=== PATIENT | female | born 1945 | race Caucasian/White ===

== ENCOUNTER 2020-08-23 16:29 | Emergency (ER) | payer MEDICARE, OTHER ==
[2020-08-23] MEDS ORDERED: cloNIDine 0.1 MG Tab PO ONE (16:51)
[2020-08-23 16:53] LABS: CHLORIDE,CL 103 mmol/L (98-107); SODIUM,NA 143 mmol/L (136-145)
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
[2020-08-23 19:09] VITALS: BP 182/90; PULSE 102
== END 2020-08-23 18:25 | disposition home or self-care (01) ==
LOC: LL.ED 16:29
DX: I10 Essential (primary) hypertension (principal); J44.9 Chronic obstructive pulmonary disease, unspecified; Z79.899 Other long term (current) drug therapy; Z79.82 Long term (current) use of aspirin; D62 Acute posthemorrhagic anemia
CPT/HCPCS: 36415; 71045; 80053; 84484; 85018; 85025; 93005; 99284; 99284-25; A9270-GY

== ENCOUNTER 2022-02-06 07:40 | Emergency (ER) | payer MEDICARE, OTHER ==
[2022-02-06] MEDS ORDERED: Sodium Chloride 0.9% 10 ML Syringe FLUSH PRN (07:57)
[2022-02-06 08:23] LABS: CHLORIDE,CL 97 mmol/L (98-107); SODIUM,NA 133 mmol/L (136-145)
[2022-02-06 08:26] LABS: ANION GAP 6.3 meq/L (7-15); ESTIMATED GFR 67 mL/min (>=60)
[2022-02-06] MEDS ORDERED: hydrALAZINE 20 MG/ML SDV IVPUSH ONE (08:36)
[2022-02-06] MEDS ORDERED: cloNIDine 0.1 MG Tab PO ONE (10:57)
[2022-02-06] MEDS ORDERED: amLODIPine 5 MG Tab PO ONE (11:01)
[2022-02-06] MEDS ORDERED: Metoprolol Succinate 50 MG Tab.ER PO ONE (11:01)
[2022-02-06] MEDS ORDERED: diphenhydrAMINE 25 MG Cap PO ONE (11:18)
[2022-02-06 18:16] VITALS: BP 138/72; PULSE 75
== END 2022-02-06 13:40 | disposition home or self-care (01) ==
LOC: LL.ED 07:40
DX: F03.91 Unspecified dementia, unspecified severity, with behavioral disturbance (principal); I11.0 Hypertensive heart disease with heart failure; I50.9 Heart failure, unspecified; J44.9 Chronic obstructive pulmonary disease, unspecified; K21.9 Gastro-esophageal reflux disease without esophagitis; Z79.82 Long term (current) use of aspirin; Z79.899 Other long term (current) drug therapy; Z87.891 Personal history of nicotine dependence
CPT/HCPCS: 70450; 71045; 80053; 81001; 82947; 84484; 85025; 85610; 85730; 93005; 93010; 96374; 99284; 99285-25; A9270-GY; J0360; J3490

== ENCOUNTER 2022-04-06 16:22 | Emergency (ER) | payer MEDICARE, OTHER ==
[2022-04-06] MEDS ORDERED: Sodium Chloride 0.9% 10 ML Syringe FLUSH PRN (16:23)
[2022-04-06 16:35] VITALS: PULSE 90
[2022-04-06 17:12] LABS: CHLORIDE,CL 89 mmol/L (98-107); SODIUM,NA 126 mmol/L (136-145)
[2022-04-06 17:20] LABS: ANION GAP 11.7 meq/L (7-15); ESTIMATED GFR 73 mL/min (>=60)
[2022-04-06 18:02] VITALS: BP 151/82
== END 2022-04-06 22:50 | disposition home or self-care (01) ==
LOC: LL.ED 16:22
DX: U07.1 COVID-19 (principal); I11.0 Hypertensive heart disease with heart failure; I50.9 Heart failure, unspecified; J44.9 Chronic obstructive pulmonary disease, unspecified; Z79.899 Other long term (current) drug therapy; Z79.82 Long term (current) use of aspirin
CPT/HCPCS: 36415; 80053; 83605; 83615; 83735; 84100; 85025; 86140; 87040; 99284

== ENCOUNTER 2022-06-19 16:17 | Inpatient (IN) | payer MEDICARE, OTHER ==
[2022-06-19] MEDS ORDERED: Acetaminophen 325 MG Tab PO ONE (16:22)
[2022-06-19 17:12] LABS: CHLORIDE,CL 89 mmol/L (98-107); SODIUM,NA 132 mmol/L (136-145)
[2022-06-19 17:13] LABS: ESTIMATED GFR 46 mL/min (>=60)
[2022-06-19 17:17] LABS: PCO2 ARTERIAL,POC 43 mmHg (35-48)
[2022-06-19 17:23] LABS: CORONAVIRUS COVID-19 NAA NEGATIVE (NEGATIVE); RESPIRATORY SYNCYTIAL VIR NAA NEGATIVE (NEGATIVE)
[2022-06-19] MEDS ORDERED: methylPREDNISolone Sodium Succinate 125 MG/2 ML SDV IVPUSH ONE ×2 (17:40→20:43)
[2022-06-19] MEDS ORDERED: Azithromycin 500 MG in Sodium Chloride 0.9% 250 ML IV ONE (17:40)
[2022-06-19] MEDS ORDERED: cefTRIAXone 1 GM in Sodium Chloride 0.9% 100 ML IV SCH (17:45)
[2022-06-19] MEDS ORDERED: EPINEPHRINE 0.3 MG/0.3 ML SUBCUT PRN (19:55)
[2022-06-19] MEDS ORDERED: Acetaminophen 500 MG Tab PO PRN (19:55)
[2022-06-19] MEDS ORDERED: AUTO INJCT SUBCUT PRN (19:55)
[2022-06-19] MEDS: cefTRIAXone 1 GM in Sodium Chloride 0.9% 100 ML IV SCH (21:16)
[2022-06-19] MEDS: Donepezil 5 MG Tab PO SCH (21:27)
[2022-06-19] MEDS: Azithromycin 500 MG in Sodium Chloride 0.9% 250 ML IV SCH (22:37)
[2022-06-20] MEDS: Albuterol/Ipratropium 3.0-0.5 MG/3 ML Neb Soln NEB SCH ×4 (00:04→23:39)
[2022-06-20 07:33] LABS: ANION GAP 10.9 meq/L (7-15)
[2022-06-20] MEDS ORDERED: methylPREDNISolone Sodium Succinate 40 MG/1 ML SDV IVPUSH ONE (08:00)
[2022-06-20] MEDS ORDERED: Memantine HCl 28 MG CAP.ER PO SCH (08:00)
[2022-06-20] MEDS ORDERED: Enoxaparin 40 MG/0.4 ML Syringe SUBCUT SCH (08:00)
[2022-06-20] MEDS: Polyethylene Glycol 3350 Powder 17 GM Packet PO SCH (08:02)
[2022-06-20] MEDS: Lactulose Soln 10 GM/15 ML 30 ML UD Cup PO SCH ×2 (08:04→17:07)
[2022-06-20] MEDS: Aspirin 81 MG Tab.EC PO SCH (08:05)
[2022-06-20] MEDS: Rosuvastatin 10 MG Tab PO SCH (08:07)
[2022-06-20] MEDS: Metoprolol Succinate 50 MG Tab.ER PO SCH (08:07)
[2022-06-20] MEDS: Potassium Chloride 10 MEQ Tab.ER PO SCH (08:08)
[2022-06-20] MEDS: Montelukast 10 MG Tab PO SCH (08:08)
[2022-06-20] MEDS: Lisinopril 20 MG Tab PO SCH ×2 (08:08→17:08)
[2022-06-20] MEDS: Furosemide 40 MG Tab PO SCH (08:09)
[2022-06-20] MEDS: amLODIPine 5 MG Tab PO SCH (08:09)
[2022-06-20] MEDS: cloNIDine 0.1 MG Tab PO SCH (08:09)
[2022-06-20] MEDS: Memantine 10 MG Tab PO SCH ×2 (11:00→17:08)
[2022-06-20] MEDS ORDERED: Azithromycin 500 MG in Sodium Chloride 0.9% 250 ML IV SCH (16:00)
[2022-06-20] MEDS ORDERED: LORazepam 0.5 MG Tab PO PRN (19:36)
[2022-06-20] MEDS: Donepezil 5 MG Tab PO SCH (19:54)
[2022-06-20] MEDS: cefTRIAXone 1 GM in Sodium Chloride 0.9% 100 ML IV SCH (21:51)
[2022-06-20] MEDS: Azithromycin 500 MG in Sodium Chloride 0.9% 250 ML IV SCH (22:29)
[2022-06-21] MEDS: Rosuvastatin 10 MG Tab PO SCH (07:46)
[2022-06-21] MEDS: Albuterol/Ipratropium 3.0-0.5 MG/3 ML Neb Soln NEB SCH ×2 (07:46→15:57)
[2022-06-21] MEDS: amLODIPine 5 MG Tab PO SCH (07:46)
[2022-06-21] MEDS: Montelukast 10 MG Tab PO SCH (07:46)
[2022-06-21] MEDS: Metoprolol Succinate 50 MG Tab.ER PO SCH (07:47)
[2022-06-21] MEDS: Memantine 10 MG Tab PO SCH ×2 (07:48→17:13)
[2022-06-21] MEDS: Aspirin 81 MG Tab.EC PO SCH (07:49)
[2022-06-21] MEDS: Furosemide 40 MG Tab PO SCH (07:49)
[2022-06-21] MEDS: Potassium Chloride 10 MEQ Tab.ER PO SCH (07:49)
[2022-06-21] MEDS: cloNIDine 0.1 MG Tab PO SCH (07:49)
[2022-06-21] MEDS: Lisinopril 20 MG Tab PO SCH (07:49)
[2022-06-21] MEDS: Lactulose Soln 10 GM/15 ML 30 ML UD Cup PO SCH ×2 (07:50→17:13)
[2022-06-21] MEDS: Polyethylene Glycol 3350 Powder 17 GM Packet PO SCH (07:50)
[2022-06-21] MEDS ORDERED: Iopamidol 612 MG/ML 100 ML Bottle IVPUSH ONE (12:41)
[2022-06-21] MEDS ORDERED: Sodium Chloride 0.9% 500 ML IV SCH ×2 (12:45→15:45)
[2022-06-21] MEDS ORDERED: Iopamidol 612 MG/ML 100 ML Bottle ONE (12:54)
[2022-06-21] MEDS ORDERED: Sodium Chloride 0.9% 1,000 ML IV SCH (18:15)
[2022-06-21] MEDS: Budesonide 0.5 MG/2 ML Neb Susp NEB SCH (18:56)
[2022-06-21] MEDS: methylPREDNISolone Sodium Succinate 40 MG/1 ML SDV IVPUSH SCH (18:56)
[2022-06-21] MEDS: Donepezil 5 MG Tab PO SCH (21:15)
[2022-06-21] MEDS: cefTRIAXone 1 GM in Sodium Chloride 0.9% 100 ML IV SCH (21:16)
[2022-06-21] MEDS: Azithromycin 500 MG in Sodium Chloride 0.9% 250 ML IV SCH (21:53)
[2022-06-22] MEDS: Albuterol/Ipratropium 3.0-0.5 MG/3 ML Neb Soln NEB SCH ×5 (00:05→23:05)
[2022-06-22] MEDS: methylPREDNISolone Sodium Succinate 40 MG/1 ML SDV IVPUSH SCH ×2 (05:46→17:36)
[2022-06-22 08:03] LABS: ANION GAP 7.6 meq/L (7-15)
[2022-06-22] MEDS: Memantine 10 MG Tab PO SCH ×2 (08:03→17:36)
[2022-06-22] MEDS: Furosemide 40 MG Tab PO SCH (08:03)
[2022-06-22] MEDS: Rosuvastatin 10 MG Tab PO SCH (08:03)
[2022-06-22] MEDS: Montelukast 10 MG Tab PO SCH (08:03)
[2022-06-22] MEDS: Potassium Chloride 10 MEQ Tab.ER PO SCH (08:03)
[2022-06-22] MEDS: Budesonide 0.5 MG/2 ML Neb Susp NEB SCH ×2 (08:03→17:37)
[2022-06-22] MEDS: Polyethylene Glycol 3350 Powder 17 GM Packet PO SCH (08:03)
[2022-06-22] MEDS: Aspirin 81 MG Tab.EC PO SCH (08:03)
[2022-06-22] MEDS: cefTRIAXone 1 GM in Sodium Chloride 0.9% 100 ML IV SCH (20:08)
[2022-06-22] MEDS: Donepezil 5 MG Tab PO SCH (20:10)
[2022-06-22] MEDS: Azithromycin 500 MG in Sodium Chloride 0.9% 250 ML IV SCH (21:12)
[2022-06-23] MEDS: methylPREDNISolone Sodium Succinate 40 MG/1 ML SDV IVPUSH SCH (05:51)
[2022-06-23] MEDS: Montelukast 10 MG Tab PO SCH (07:38)
[2022-06-23] MEDS: Rosuvastatin 10 MG Tab PO SCH (07:38)
[2022-06-23] MEDS: Aspirin 81 MG Tab.EC PO SCH (07:38)
[2022-06-23] MEDS: Memantine 10 MG Tab PO SCH (07:38)
[2022-06-23] MEDS: Furosemide 40 MG Tab PO SCH (07:39)
[2022-06-23] MEDS: Polyethylene Glycol 3350 Powder 17 GM Packet PO SCH (07:39)
[2022-06-23] MEDS: Potassium Chloride 10 MEQ Tab.ER PO SCH (07:39)
[2022-06-23] MEDS: Albuterol/Ipratropium 3.0-0.5 MG/3 ML Neb Soln NEB SCH (07:39)
[2022-06-23] MEDS: Budesonide 0.5 MG/2 ML Neb Susp NEB SCH (07:39)
[2022-06-23 08:13] VITALS: PULSE 108
[2022-06-23 08:16] VITALS: BP 138/88
== END 2022-06-23 15:02 | disposition swing bed (61) | DRG 189 ==
LOC: LL.ED 16:17 → LL.MS 19:00
PROVIDERS: ADMIT Physician Assistant; ATTEND Physician Assistant
DX: J44.1 Chronic obstructive pulmonary disease with (acute) exacerbation (principal); J96.01 Acute respiratory failure with hypoxia; J18.9 Pneumonia, unspecified organism; I50.22 Chronic systolic (congestive) heart failure; J44.0 Chronic obstructive pulmonary disease with (acute) lower respiratory infection; I95.9 Hypotension, unspecified; R62.7 Adult failure to thrive; R79.89 Other specified abnormal findings of blood chemistry; Z91.14 Patient's other noncompliance with medication regimen; J44.9 Chronic obstructive pulmonary disease, unspecified; Z87.891 Personal history of nicotine dependence; F41.8 Other specified anxiety disorders; Z99.81 Dependence on supplemental oxygen; R79.1 Abnormal coagulation profile; I50.9 Heart failure, unspecified; K21.9 Gastro-esophageal reflux disease without esophagitis; M19.90 Unspecified osteoarthritis, unspecified site; F03.90 Unspecified dementia, unspecified severity, without behavioral disturbance, psychotic disturbance, mood disturbance, and anxiety; F32.A Depression, unspecified; I73.9 Peripheral vascular disease, unspecified; I11.0 Hypertensive heart disease with heart failure; Z86.16 Personal history of COVID-19; Z79.82 Long term (current) use of aspirin; Z79.899 Other long term (current) drug therapy; Z20.822 Contact with and (suspected) exposure to COVID-19
CPT/HCPCS: 0241U; 36415; 36600; 71045; 71046; 71260; 80048; 80053; 81001; 82803; 83605; 83880; 85025; 85379; 86140; 87070; 87205; 94640; 97162-GP; 97165-GO; 97530-GP; 97535-GO; 99284; A9270-GY; J0456; J0696; J1650; J2920; J2930; J7030; J7040; J7050; J7620-GY; Q9967

== ENCOUNTER 2022-06-23 15:04 | Inpatient (IN) | payer MEDICARE, OTHER ==
[~2022-06-23 15:04] MED LIST: Sodium Chloride 0.9% 1,000 ML IV SCH
[2022-06-23] MEDS: Albuterol/Ipratropium 3.0-0.5 MG/3 ML Neb Soln NEB SCH (17:49)
[2022-06-23] MEDS: Azithromycin 250 MG Tab PO SCH (17:50)
[2022-06-23] MEDS: Budesonide 0.5 MG/2 ML Neb Susp NEB SCH (17:50)
[2022-06-23] MEDS: predniSONE 20 MG Tab PO SCH (17:50)
[2022-06-23] MEDS: Memantine 10 MG Tab PO SCH (17:50)
[2022-06-23] MEDS ORDERED: methylPREDNISolone Sodium Succinate 40 MG/1 ML SDV IVPUSH SCH (18:30)
[2022-06-23] MEDS: Fluconazole 100 MG Tab PO SCH (19:17)
[2022-06-23] MEDS: Donepezil 5 MG Tab PO SCH (19:17)
[2022-06-23] MEDS ORDERED: cefTRIAXone 1 GM in Sodium Chloride 0.9% 100 ML IV SCH (21:00)
[2022-06-23] MEDS ORDERED: Azithromycin 500 MG in Sodium Chloride 0.9% 250 ML IV SCH (22:00)
[2022-06-24] MEDS: Albuterol/Ipratropium 3.0-0.5 MG/3 ML Neb Soln NEB SCH ×4 (00:34→23:49)
[2022-06-24] MEDS: Rosuvastatin 10 MG Tab PO SCH (07:40)
[2022-06-24] MEDS: Potassium Chloride 10 MEQ Tab.ER PO SCH (07:41)
[2022-06-24] MEDS: Furosemide 40 MG Tab PO SCH (07:41)
[2022-06-24] MEDS: Aspirin 81 MG Tab.EC PO SCH (07:41)
[2022-06-24] MEDS: Memantine 10 MG Tab PO SCH ×2 (07:42→17:01)
[2022-06-24] MEDS: Polyethylene Glycol 3350 Powder 17 GM Packet PO SCH (07:42)
[2022-06-24] MEDS: predniSONE 20 MG Tab PO SCH ×2 (07:42→17:01)
[2022-06-24] MEDS: Montelukast 10 MG Tab PO SCH (07:43)
[2022-06-24] MEDS: Azithromycin 250 MG Tab PO SCH (07:43)
[2022-06-24] MEDS: Budesonide 0.5 MG/2 ML Neb Susp NEB SCH ×2 (07:47→17:01)
[2022-06-24] MEDS: Donepezil 5 MG Tab PO SCH (19:48)
[2022-06-25] MEDS: Memantine 10 MG Tab PO SCH ×2 (08:09→17:33)
[2022-06-25] MEDS: Montelukast 10 MG Tab PO SCH (08:09)
[2022-06-25] MEDS: Azithromycin 250 MG Tab PO SCH (08:10)
[2022-06-25] MEDS: Rosuvastatin 10 MG Tab PO SCH (08:10)
[2022-06-25] MEDS: Aspirin 81 MG Tab.EC PO SCH (08:10)
[2022-06-25] MEDS: Potassium Chloride 10 MEQ Tab.ER PO SCH (08:10)
[2022-06-25] MEDS: Furosemide 40 MG Tab PO SCH (08:10)
[2022-06-25] MEDS: predniSONE 20 MG Tab PO SCH ×2 (08:10→17:33)
[2022-06-25] MEDS: Polyethylene Glycol 3350 Powder 17 GM Packet PO SCH (08:10)
[2022-06-25] MEDS: Albuterol/Ipratropium 3.0-0.5 MG/3 ML Neb Soln NEB SCH ×2 (08:11→16:28)
[2022-06-25] MEDS: Budesonide 0.5 MG/2 ML Neb Susp NEB SCH ×2 (08:11→17:33)
[2022-06-25] MEDS: Donepezil 5 MG Tab PO SCH (20:20)
[2022-06-26] MEDS: Albuterol/Ipratropium 3.0-0.5 MG/3 ML Neb Soln NEB SCH ×4 (01:43→23:07)
[2022-06-26] MEDS: Memantine 10 MG Tab PO SCH ×2 (08:25→17:39)
[2022-06-26] MEDS: Rosuvastatin 10 MG Tab PO SCH (08:25)
[2022-06-26] MEDS: Montelukast 10 MG Tab PO SCH (08:25)
[2022-06-26] MEDS: Budesonide 0.5 MG/2 ML Neb Susp NEB SCH ×2 (08:25→17:39)
[2022-06-26] MEDS: Aspirin 81 MG Tab.EC PO SCH (08:26)
[2022-06-26] MEDS: Potassium Chloride 10 MEQ Tab.ER PO SCH (08:26)
[2022-06-26] MEDS: predniSONE 20 MG Tab PO SCH ×2 (08:26→17:39)
[2022-06-26] MEDS: Furosemide 40 MG Tab PO SCH (08:26)
[2022-06-26] MEDS: Polyethylene Glycol 3350 Powder 17 GM Packet PO SCH (08:26)
[2022-06-26] MEDS: Azithromycin 250 MG Tab PO SCH (08:26)
[2022-06-26] MEDS ORDERED: Polyethylene Glycol 3350 Powder 17 GM Packet PO PRN (10:19)
[2022-06-26] MEDS: Donepezil 5 MG Tab PO SCH (19:21)
[2022-06-27] MEDS: Furosemide 40 MG Tab PO SCH (07:11)
[2022-06-27] MEDS: Montelukast 10 MG Tab PO SCH (07:12)
[2022-06-27] MEDS: Potassium Chloride 10 MEQ Tab.ER PO SCH (07:12)
[2022-06-27] MEDS: Memantine 10 MG Tab PO SCH ×2 (07:12→18:11)
[2022-06-27] MEDS: Azithromycin 250 MG Tab PO SCH (07:13)
[2022-06-27] MEDS: Rosuvastatin 10 MG Tab PO SCH (07:13)
[2022-06-27] MEDS: Albuterol/Ipratropium 3.0-0.5 MG/3 ML Neb Soln NEB SCH ×3 (07:14→23:01)
[2022-06-27] MEDS: Aspirin 81 MG Tab.EC PO SCH (07:15)
[2022-06-27] MEDS: Budesonide 0.5 MG/2 ML Neb Susp NEB SCH ×2 (07:28→18:11)
[2022-06-27] MEDS: Donepezil 5 MG Tab PO SCH (20:07)
[2022-06-28] MEDS: Montelukast 10 MG Tab PO SCH (07:39)
[2022-06-28] MEDS: Memantine 10 MG Tab PO SCH ×2 (07:39→18:28)
[2022-06-28] MEDS: Budesonide 0.5 MG/2 ML Neb Susp NEB SCH ×2 (07:39→18:28)
[2022-06-28] MEDS: Furosemide 40 MG Tab PO SCH (07:39)
[2022-06-28] MEDS: Potassium Chloride 10 MEQ Tab.ER PO SCH (07:39)
[2022-06-28] MEDS: Rosuvastatin 10 MG Tab PO SCH (07:39)
[2022-06-28] MEDS: Aspirin 81 MG Tab.EC PO SCH (07:39)
[2022-06-28] MEDS: Albuterol/Ipratropium 3.0-0.5 MG/3 ML Neb Soln NEB SCH ×2 (07:40→16:09)
[2022-06-28] MEDS: Acetaminophen 500 MG Tab PO PRN (09:10)
[2022-06-28] MEDS: Donepezil 5 MG Tab PO SCH (20:17)
[2022-06-29] MEDS: Albuterol/Ipratropium 3.0-0.5 MG/3 ML Neb Soln NEB SCH ×4 (01:19→23:07)
[2022-06-29] MEDS: Aspirin 81 MG Tab.EC PO SCH (08:02)
[2022-06-29] MEDS: Memantine 10 MG Tab PO SCH ×2 (08:02→17:41)
[2022-06-29] MEDS: Furosemide 40 MG Tab PO SCH (08:03)
[2022-06-29] MEDS: Rosuvastatin 10 MG Tab PO SCH (08:03)
[2022-06-29] MEDS: Montelukast 10 MG Tab PO SCH (08:03)
[2022-06-29] MEDS: Potassium Chloride 10 MEQ Tab.ER PO SCH (08:03)
[2022-06-29] MEDS: Budesonide 0.5 MG/2 ML Neb Susp NEB SCH ×2 (08:04→17:41)
[2022-06-29] MEDS: Acetaminophen 500 MG Tab PO PRN (13:08)
[2022-06-29] MEDS: Donepezil 5 MG Tab PO SCH (20:01)
[2022-06-30] MEDS: Acetaminophen 500 MG Tab PO PRN ×2 (05:28→13:48)
[2022-06-30] MEDS: Albuterol/Ipratropium 3.0-0.5 MG/3 ML Neb Soln NEB SCH ×3 (08:23→23:04)
[2022-06-30] MEDS: Montelukast 10 MG Tab PO SCH (08:23)
[2022-06-30] MEDS: Rosuvastatin 10 MG Tab PO SCH (08:23)
[2022-06-30] MEDS: Furosemide 40 MG Tab PO SCH (08:23)
[2022-06-30] MEDS: Aspirin 81 MG Tab.EC PO SCH (08:23)
[2022-06-30] MEDS: Budesonide 0.5 MG/2 ML Neb Susp NEB SCH ×2 (08:23→17:05)
[2022-06-30] MEDS: Potassium Chloride 10 MEQ Tab.ER PO SCH (08:23)
[2022-06-30] MEDS: Memantine 10 MG Tab PO SCH ×2 (08:23→17:05)
[2022-06-30] MEDS: Donepezil 5 MG Tab PO SCH (19:08)
[2022-06-30] MEDS: Fluconazole 100 MG Tab PO SCH (19:26)
[2022-07-01] MEDS: Rosuvastatin 10 MG Tab PO SCH (07:57)
[2022-07-01] MEDS: Furosemide 40 MG Tab PO SCH (07:57)
[2022-07-01] MEDS: Potassium Chloride 10 MEQ Tab.ER PO SCH (07:57)
[2022-07-01] MEDS: Memantine 10 MG Tab PO SCH ×2 (07:57→17:52)
[2022-07-01] MEDS: Montelukast 10 MG Tab PO SCH (07:57)
[2022-07-01] MEDS: Aspirin 81 MG Tab.EC PO SCH (07:57)
[2022-07-01] MEDS: Acetaminophen 500 MG Tab PO PRN ×2 (07:57→13:58)
[2022-07-01] MEDS: Albuterol/Ipratropium 3.0-0.5 MG/3 ML Neb Soln NEB SCH ×2 (07:58→17:54)
[2022-07-01] MEDS: Budesonide 0.5 MG/2 ML Neb Susp NEB SCH (07:58)
[2022-07-01 08:01] VITALS: BP 153/79; PULSE 95
== END 2022-07-01 18:25 | disposition home or self-care (01) | DRG 194 ==
LOC: LL.MS 15:04
PROVIDERS: ADMIT Physician Assistant; ATTEND Physician Assistant
DX: J18.9 Pneumonia, unspecified organism (principal); I50.22 Chronic systolic (congestive) heart failure; I50.42 Chronic combined systolic (congestive) and diastolic (congestive) heart failure; R62.7 Adult failure to thrive; R79.89 Other specified abnormal findings of blood chemistry; I95.9 Hypotension, unspecified; R19.7 Diarrhea, unspecified; F41.8 Other specified anxiety disorders; J43.1 Panlobular emphysema; I11.0 Hypertensive heart disease with heart failure; Z91.14 Patient's other noncompliance with medication regimen; Z91.119 Patient's noncompliance with dietary regimen due to unspecified reason; Z99.81 Dependence on supplemental oxygen
CPT/HCPCS: 94640; 97110-GO; 97110-GP; 97162-GP; 97530-GO; 97530-GP; 97535-GO; A9270-GY; J7512; J7620-GY